=== PATIENT | male | born 1950 | race Caucasian/White ===

== ENCOUNTER 2020-11-17 08:42 | Outpatient (CLI) | payer MEDICARE, OTHER, SELFPAY ==
--- NOTE | 2020-12-11 12:16 | WPDHOMESLEEP ---
Sleep Study - Home Unattended Date of Study: 11/17/20 Ordering Provider: Olive Lindquist MD; primary care is Faustino Thapa MD Interpreting Provider: Pili Barrett MD Home Sleep Study Type: Apnea Link Air Height: 1.8 m Weight: 118.841 kg Body Mass Index: 36.5 Neck Circumference (inches): 17.25 [place]: 6 Reason for Sleep Study history of SHAD, was on CPAP, had partial pneumonectomy, re-testing 08/07/2004 CPAP titration 10 cm 05/11/2004 CPAP titration-inadequate 03/15/2004 Basic sleep study; AHI 13.3., lowest saturation 77% Sleep History Jonah Fernandez is aa 70 year old man with a history of obstructive sleep apnea, previously used CPAP but has not used it for the last 3 years. See dates of studies above. his last sleep study at [place] was in 2003 when he needed CPAP 10 cm. He does not snore, and no one tells him that he does. He does not awaken at night with heartburn, belching or coughing. He does not awaken from sleep feeling short of breath. He rarely has trouble sleeping with a cold. He does not wake at night gasping for breath. He does not have breathing problems at night observed by others. He does not sweat excessively at night and does not notice his heart pounding or beating irregularly at night. He occasionally falls asleep. He rarely falls asleep involuntarily. He never falls asleep while driving. He does not fall asleep while exerting physical effort. He does not have loss of muscle tone was strong emotion. He does not have daytime difficulties due to excessive sleepiness. He is retired regional truck driver. He does not feel paralyzed on waking or falling asleep. He does not have vivid dreamlike scenes upon awakening or falling asleep. He does not feel afraid to go to sleep. He rarely has nightmares. He rarely remembers his dreams. He occasionally has racing thoughts. He does not feel sad depressed or anxious. He occasionally has muscular tension. He rarely notices parts of his body jerking. He occasionally kicks at night, occasionally has crawling and aching feelings in his legs and occasionally has leg pain during the night. He does not have morning jaw pain. He does not grind his teeth at night. He frequently is bothered by pain during the day. He occasionally is awakened by pain at night, wakes up feeling stiff in the morning with sore achy muscles and frequently wakes up with pain in the neck and spine. He takes omeprazole 20 mg daily for heartburn. he does not have morning headaches. He frequently awakens feeling refreshed. He occasionally has daytime sleepiness. he rarely has memory or concentration problems. Normal bedtime is 11:00 p.m., falling asleep in 10 or 15 minutes, waking 2-3 times at night for 15 minutes. He will often get a drinking go back to sleep. He wakes in the morning at 7:30 a.m.. On weekends he will stay awake until 1:00 a.m. and wake between 8 and 9:00 a.m.. He does take naps in the afternoon or evening. A short nap may be refreshing. Most of the time he feels good in the morning. He feels better in the afternoon compared to the morning. Habits: Quit tobacco in 1994. Caffeine: drinks a pot of coffee throughout the day. No alcohol or recreational drugs. [facility] Past Medical History Medical History (Updated 12/11/20 @ 14:41 by Pili Barrett MD) Arthritis COPD (chronic obstructive pulmonary disease) Coronary artery disease has a stent Diabetes Hiatal hernia with GERD History of lung cancer partial pneumonectomy Hypertension SHAD (obstructive sleep apnea) (~2003) Surgical History Surgical History (Updated 12/11/20 @ 14:41 by Pili Barrett MD) History of carpal tunnel release History of pneumonectomy S/P ventral herniorrhaphy Family History Family History Mother Bladder cancer Father Malignant neoplasm of prostate CAD (coronary artery disease) Acute myocardial infarction Sibling
[2020-12-11 14:12] VITALS: BMI 36.5
== END 2020-11-17 08:43 | disposition home or self-care (01) ==
LOC: ANHCSM 08:45
PROVIDERS: Family Provider Internal Medicine; PCP Family Medicine; Visit Provider Internal Medicine Critical Care Medicine
DX: G47.33 Obstructive sleep apnea (adult) (pediatric) (principal)
CPT/HCPCS: 95806

== ENCOUNTER → 2020-12-27 00:28 | Outpatient (CLI) | payer MEDICARE, OTHER, SELFPAY ==
[2020-12-27 18:03] LABS: SARS-CoV-2 RNA PCR Negative
== END ==
PROVIDERS: PCP Family Medicine; Visit Provider Internal Medicine Critical Care Medicine
DX: Z01.812 Encounter for preprocedural laboratory examination (principal); Z20.822 Contact with and (suspected) exposure to COVID-19
CPT/HCPCS: C9803; U0003; U0005

== ENCOUNTER 2020-12-29 09:02 | Outpatient (CLI) | payer MEDICARE, OTHER, SELFPAY ==
--- NOTE | 2021-01-17 14:32 | WPDSLEEPSTUD ---
Sleep Study Date of Study: 12/29/20 Ordering Provider: Pili Barrett MD Interpreting Physician: Pili Barrett MD Sleep Study Type: CPAP Titration Height: 1.8 m Weight: 118.841 kg Body Mass Index: 36.5 Neck Circumference (inches): 18 [place]: 4 Reason for Sleep Study Home Sleep Test November 17, 2020 with moderate obstructive sleep apnea, AHI 16, deep desaturation to 71%, here for CPAP titration; had 94% obstructive events, 6% central apneas. Sleep History Jonah Fernandez is a 70 year old man with a history of obstructive sleep apnea, previously used CPAP, has not used it for 3 years. He is here for CPAP titration. history of SHAD, was on CPAP, had partial pneumonectomy, re-testing 08/07/2004 CPAP titration 10 cm with similar wt/BMI 05/11/2004 CPAP titration-inadequate 03/15/2004 Basic sleep study; AHI 13.3., lowest saturation 77% 11/17/2020 HST mod SHAD AHI 16, lowest desaturation 71%, 94% obstructive, 6% centrals, 4% of the test with saturation < 88% He does not snore, and no one tells him that he does. He does not awaken at night with heartburn, belching or coughing. He does not awaken from sleep feeling short of breath. He rarely has trouble sleeping with a cold. He does not wake at night gasping for breath. He does not have breathing problems at night observed by others. He does not sweat excessively at night and does not notice his heart pounding or beating irregularly at night. He occasionally falls asleep. He rarely falls asleep involuntarily. He never falls asleep while driving. He does not fall asleep while exerting physical effort. He does not have loss of muscle tone was strong emotion. He does not have daytime difficulties due to excessive sleepiness. He is retired truckload owner operator. He does not feel paralyzed on waking or falling asleep. He does not have vivid dreamlike scenes upon awakening or falling asleep. He does not feel afraid to go to sleep. He rarely has nightmares. He rarely remembers his dreams. He occasionally has racing thoughts. He does not feel sad depressed or anxious. He occasionally has muscular tension. He rarely notices parts of his body jerking. He occasionally kicks at night, occasionally has crawling and aching feelings in his legs and occasionally has leg pain during the night. He does not have morning jaw pain. He does not grind his teeth at night. He frequently is bothered by pain during the day. He occasionally is awakened by pain at night, wakes up feeling stiff in the morning with sore achy muscles and frequently wakes up with pain in the neck and spine. He takes omeprazole 20 mg daily for heartburn. He does not have morning headaches. He frequently awakens feeling refreshed. He occasionally has daytime sleepiness. he rarely has memory or concentration problems. Normal bedtime is 11:00 p.m., falling asleep in 10 or 15 minutes, waking 2-3 times at night for 15 minutes. He will often get a drink then go back to sleep. He wakes in the morning at 7:30 a.m.. On weekends, he stays awake until 1:00 a.m. and wakes between 8:00 a.m. and 9:00 a.m.. He does take naps in the afternoon or evening. A short nap may be refreshing. Most of the time he feels good in the morning. He feels better in the afternoon compared to the morning. Habits: Quit tobacco in 1994. Caffeine: drinks a pot of coffee throughout the day. No alcohol or recreational drugs. [facility] Past Medical History Medical History Arthritis COPD (chronic obstructive pulmonary disease) Coronary artery disease has a stent Diabetes Hiatal hernia with GERD History of lung cancer partial pneumonectomy Hypertension SHAD (obstructive sleep apnea) (~2003) Surgical History Surgical History History of carpal tunnel release History of pneumonectomy S/P ventral herniorrhaphy Family History Family History (Reviewed 01/17
[2021-01-17 14:57] VITALS: BMI 36.5
== END 2020-12-29 09:03 | disposition home or self-care (01) ==
LOC: ANHCSM 09:02
PROVIDERS: PCP Family Medicine; Visit Provider Internal Medicine Critical Care Medicine
DX: G47.33 Obstructive sleep apnea (adult) (pediatric) (principal)
CPT/HCPCS: 95811